=== PATIENT | male | born 1960 | race Caucasian/White ===

== ENCOUNTER 2024-03-21 13:57 | Inpatient (IN) | payer BC ==
[2024-03-21] MEDS ORDERED: HEPARIN SODIUM 1,000 UN/ML (10ML VL) IV PRN (14:00)
--- NOTE | 2024-03-21 14:07 | ED ---
Chest Pain HPI - General Chief Complaint: Chest Pain Stated Complaint: STEMI Time Seen by Provider: 03/21/24 14:00 Source: patient Mode of arrival: EMS Limitations: no limitations - History of Present Illness Initial Comments: This patient is a 63-year-old man who presents for evaluation of upper chest pain that started approximately 45 minutes ago. Patient had associated dyspnea. EMS was called and transferred patient here. Denies history of previous coronary disease. MD Complaint: chest pain Onset/Timin -: minutes(s) Onset: during rest Pain Location: left chest Pain Radiation: LUE Severity: moderate Quality: aching Consistency: constant Improves With: nothing Worsens With: nothing Anginal Symptoms: dyspnea Treatments Prior to Arrival: aspirin, nitroglycerin - Related Data Previous Rx's Medication Instructions Recorded Aspirin 81 mg PO DAILY #30 tab 03/23/24 Atorvastatin [Lipitor] 40 mg PO HS #30 tab 03/23/24 Metoprolol Succinate (ER) [Toprol 12.5 mg PO DAILY #30 tab 03/23/24 XL] Nitroglycerin Sl Tabs [Nitrostat] 0.4 mg SUBLINGUAL Q5M PRN #30 tab 03/23/24 Ticagrelor [Brilinta] 90 mg PO BID #60 tab 03/23/24 Allergies Allergy/AdvReac Type Severity Reaction Status Date / Time No Known Allergies Allergy Verified 03/21/24 14:15 Review of Systems ROS Statement: Those systems with pertinent positive or pertinent negative responses have been documented in the HPI. ROS Other: All systems not noted in ROS Statement are negative. Constitutional: Denies: fever, chills, weakness Respiratory: Reports: dyspnea. Denies: cough Cardiovascular: Reports: chest pain. Denies: palpitations, orthopnea, edema, syncope Gastrointestinal: Denies: abdominal pain, nausea, vomiting, diarrhea, constipation Genitourinary: Denies: dysuria, hematuria Musculoskeletal: Denies: back pain Skin: Denies: rash Neurological: Denies: headache, weakness, numbness EKG Findings - EKG Results: EKG: interpreted by JAYCE, sinus rhythm, normal axis - Blocks, [place], Hypertrophy, ST Abn: AV and intraventricular conduction: 1 AV block - NJ, Pacemaker, Normal: Myocardial infarction: inferior NJ (old age indeterminate) Past Medical History Past Medical History: Hyperlipidemia, Hypertension Past Surgical History: Hernia Repair, Orthopedic Surgery Smoking Status: Never smoker General Exam Limitations: no limitations General appearance: alert, in no apparent distress Head exam: Present: atraumatic, normocephalic Eye exam: Present: normal appearance. Absent: scleral icterus, conjunctival injection Neck exam: Present: normal inspection Respiratory exam: Present: normal lung sounds bilaterally. Absent: respiratory distress, wheezes, rales, rhonchi, stridor, accessory muscle use Cardiovascular Exam: Present: regular rate, normal rhythm, normal heart sounds. Absent: systolic murmur, diastolic murmur, rubs, gallop GI/Abdominal exam: Present: soft. Absent: distended, tenderness, guarding, rebound, rigid, mass Extremities exam: Present: normal inspection, normal capillary refill. Absent: pedal edema, calf tenderness Back exam: Present: normal inspection. Absent: CVA tenderness (R), CVA tenderness (L) Neurological exam: Present: alert Skin exam: Present: warm, dry, intact, normal color. Absent: rash Course Vital Signs 03/21/24 03/21/24 03/21/24 13:59 14:09 14:11 Temperature 97 F L Pulse Rate 63 58 L Pulse Rate [ 60 Pulse Oximetery ] Respiratory 16 16 Rate Blood Pressure 106/70 117/76 O2 Sat by Pulse 99 99 Oximetry Chest Pain MDM - MDM The patient had chest x-ray that I interpreted as negative for acute infiltrate, pneumothorax, congestive heart failure Was pt. sent in by a medical professional or institution (KAITLIN Mendes, LOCKER ATTENDANT, urgent care, hospital, or fdc...) When possible be specific @ -[No] Did you speak to anyone other than the patient for history (EMS, parent, family, police, friend...)? What history was obtained from this source @ -[No] Did you review nursing and triage notes (agree or disagree)? Why? @ -[I reviewed and agree with nursing and triage notes] Were old charts reviewed (outside hosp., previous admission, EMS record, old EKG, old radiological studies, urgent care reports/EKG's, fdc records)? Report findings @ -[No old charts were reviewed] Differential Diagnosis (chest pain, altered mental status, abdominal pain women, abdominal pain men, vaginal bleeding, weakness, fever, dyspnea, syncope, headache, dizziness, GI bleed, back pain, seizure, CVA, palpatations, mental health, musculoskeletal)? @ -[Differential Chest Pain: Stable Angina, Unstable Angina, STEMI, NSTEMI Aortic Dissection, Pneumothorax, Musculoskeletal, Esophageal Spasm GERD, Cholecystitis, Pancreatitis, Zoster, this is not meant to be an all-inclusive list. EKG interpreted by me (3pts min.). @ -[I interpreted the patient's twelve-lead ECG as showing acute inferior STEMI X-rays interpreted by me (1pt min.). @ -[I interpreted as above CT interpreted by me (1pt min.). @ -[None done] U/S interpreted by me (1pt. min.). @ -[None done] What testing was considered but not performed or refused? (CT, X-rays, U/S, labs)? Why? @ -[None] What meds were considered but not given or refused? Why? @ -[None] Did you discuss the management of the patient with other professionals (professionals i.e. , PA, LOCKER ATTENDANT, lab, RT, psych nurse, social contact worker, aircraft maintenance technician, teacher, public relations officer, case management director)? Give summary @ -[Case discussed with admitting physician and with cardiology on-call and treatment recommendations incorporated Was smoking cessation discussed for >3mins.? @ -[No] Was critical care preformed (if so, how long)? @ -[Yes, 30 minutes Were there social determinants of health that impacted care today? How? (Homelessness, low income, unemployed, alcoholism, drug addiction, transportation, low edu. Level, literacy, decrease access to med. care, fdc, rehab)? @ -[No] Was there de-escalation of care discussed even if they declined (Discuss DNR or withdrawal of care, Hospice)? DNR status @ -[No] What co-morbidities impacted this encounter? (DM, HTN, Smoking, COPD, CAD, Cancer, CVA, ARF, Chemo, Hep., AIDS, mental health diagnosis, sleep apnea, morbid obesity)? @ -[None] Was patient admitted / discharged? Hospital course, mention meds given and route, prescriptions, significant lab abnormalities, going to OR and other pertinent info. @ -[Patient is a 63-year-old man brought by ambulance to have evaluation of c hest pain. The patient found to have acute ST elevation NJ. The [facility] is activated based on the telemetry EKG and the patient transferred to [facility] Undiagnosed new problem with uncertain prognosis? @ -[No] Drug Therapy requiring intensive monitoring for toxicity (Heparin, Nitro, Insulin, Cardizem)? @ -[No] Were any procedures done? @ -[No] Diagnosis/symptom? @ -[Acute STEMI Acute, or Chronic, or Acute on Chronic? @ -[Acute Uncomplicated (without systemic symptoms) or Complicated (systemic symptoms)? @ -[Uncomplicated Side effects of treatment? @ -[No] Exacerbation, Progression, or Severe Exacerbation? @ -[No] Poses a threat to life or bodily function? How? (Chest pain, [place], NJ, pneumonia, PE, COPD, DKA, ARF, appy, cholecystitis, CVA, Diverticulitis, Homicidal, Suicidal, threat to staff... and all critical care pts) @ -[Yes Critical Care Time Critical Care Time: Yes (30 minutes) Disposition Clinical Impression: STEMI (ST elevation myocardial infarction) Disposition: ADMITTED IP TO THIS HOSP Condition: Good Is patient prescribed a controlled substance at d/c from ED?: No
[2024-03-21] MEDS: MORPHINE SULFATE 4 MG/ML SYRINGE IV STA (14:08)
[2024-03-21] MEDS: ATORVASTATIN 80 MG TAB PO STA (14:08)
[2024-03-21] MEDS: HEPARIN SODIUM 1,000 UN/ML (10ML VL) IV ONE (14:10)
[2024-03-21] MEDS: IV FLUID CONTINUATION 1,000 ML IV ONE ×3 (14:19→21:25)
--- NOTE | 2024-03-21 14:20 | XR ---
EXAMINATION TYPE: XR chest 1V portable DATE OF EXAM: 03/21/2024 Comparison: None Clinical History: 63-year-old male chest pain Findings: Heart normal size. Mild interstitial density and peribronchial cuffing. No consolidation or pleural e ffusion. Impression: Interstitial density could reflect bronchitis or asthma. [facility], , 03/21/2024 2:17 PM
[2024-03-21] MEDS: MORPHINE SULFATE 4 MG/ML SYRINGE IVP ONE (14:30)
[2024-03-21] MEDS: LIDOCAINE 1% INJ 10MG/ML (20 ML MDV) SQ ONE ×2 (14:30→21:26)
[2024-03-21] MEDS: TICAGRELOR 90 MG TAB PO ONE (14:32)
[2024-03-21] MEDS: VERAPAMIL SYRINGE (5 MG/10 ML) INTRAARTER ONE ×2 (14:32→21:27)
[2024-03-21] MEDS: HEPARIN SODIUM 1,000 UN/ML (10ML VL) IVP ONE (14:38)
[2024-03-21 14:48] LABS: Basophils % (A) 1 %; Eosinophils # (A) 0.1 k/uL (0-0.7); Eosinophils % (A) 1 %; HCT 43.3 % (39.0-53.0); HGB 14.2 gm/dL (13.0-17.5); Lymphocytes # (A) 2.8 k/uL (1.0-4.8); Lymphocytes % (A) 44 %; MCH 30.2 pg (25.0-35.0); MCHC 32.9 g/dL (31.0-37.0); MCV 91.8 fL (80.0-100.0); Mean Platelet Volume 7.8; Monocytes # (A) 0.5 k/uL (0-1.0); Monocytes % (A) 8 %; Neutrophils # (A) 2.7 k/uL (1.3-7.7); Neutrophils % (A) 42 %; Platelet Count 152 k/uL (150-450); RBC 4.72 m/uL (4.30-5.90); RDW 13.2 % (11.5-15.5); WBC 6.5 k/uL (3.8-10.6)
[2024-03-21] MEDS: EPINEPHrine 10 ML SYRINGE (0.1 MG/ML) MISCELLANE ONE (14:48)
[2024-03-21 14:53] LABS: ALT 20 U/L (4-49); African American GFR (CKD) 83 (>60 ml/min/1.73 sqM); Anion Gap 14 mmol/L; Blood Urea Nitrogen 14 mg/dL (9-20); Calcium 9.7 mg/dL (8.4-10.2); Carbon Dioxide 19 mmol/L (22-30); Chloride 108 mmol/L (98-107); Glucose 101 mg/dL (74-99); Non-African American GFR(CKD) 72 (>60 ml/min/1.73 sqM); Sodium 141 mmol/L (137-145); Total Bilirubin 0.8 mg/dL (0.2-1.3)
[2024-03-21 14:56] LABS: AST 37 U/L (17-59); Albumin 4.4 g/dL (3.5-5.0); Magnesium 2.3 mg/dL (1.6-2.3); Potassium 4.5 mmol/L (3.5-5.1); Total Protein 6.9 g/dL (6.3-8.2)
[2024-03-21 14:57] LABS: Alkaline Phosphatase 59 U/L (38-126)
[2024-03-21] MEDS: METOPROLOL TARTRATE 5 MG/5 ML VIAL IVP ONE (15:00)
[2024-03-21] MEDS: hydrALAZINE HCL 20 MG/ML 1 ML VIAL IVP ONE (15:00)
[2024-03-21 15:05] LABS: Partial Thromboplastin Time 23.4 sec (22.0-30.0); Prothrombin Time 10.6 sec (10.0-12.5)
[2024-03-21] MEDS: PHENYLEPHRINE 10 MG/ML VIAL IV ONE (15:15)
[2024-03-21] MEDS: NOREPINEPHRINE 4 MG in SODIUM CHLORIDE 0.9% 250 ML IV ONE (15:17)
[2024-03-21] MEDS: IOPAMIDOL-370 200ML BTL INJ ONE (15:39)
[2024-03-21] MEDS: TIROFIBAN 12.5MG-250ML NS 250 ML IV ONE (15:58)
[2024-03-21] MEDS ORDERED: NITROGLYCERIN SL TABS 0.4 MG TAB SUBLINGUAL PRN (16:08)
[2024-03-21] MEDS ORDERED: RX INFO: IV CONTRAST WAS GIVEN 1 EACH MISC MISCELLANE PRN ×2 (16:08→21:40)
[2024-03-21] MEDS ORDERED: ATROPINE SULFATE 0.1 MG/ML 10ML SYRINGE IV PRN (16:08)
[2024-03-21] MEDS ORDERED: ZOLPIDEM 5 MG TAB PO PRN (16:08)
[2024-03-21] MEDS ORDERED: MAG HYDROX/AL HYDROX/SIMETH 30 ML CUP PO PRN (16:08)
--- NOTE | 2024-03-21 16:18 | P.PCN ---
Date of Procedure: 03/21/24 Operative Findings: CARDIAC CATHETERIZATION AND PERCUTANEOUS CORONARY INTERVENTION PERFORMING PHYSICIAN: Konstantin Metzger MD, [facility] PROCEDURE PERFORMED: 1. Selective right and left coronary angiogram 2. Left heart catheterization 3. Successful stenting of mid RCA using 5.0 x 28 mm Xience EDY which was pos tdilated using 5.5 mm NC balloon with an excellent angiographic results 4. Adjunctive use of IVUS and thrombectomy 5. Ultrasound-guided access of the right radial artery INDICATION: Inferior ST elevation myocardial infarction COMPLICATION: None APPROACH: Right radial artery LEVEL OF SEDATION: Moderate with the sedation time off 80 minutes PROCEDURE DESCRIPTION: After obtaining informed consent the patient was brought to the cardiac Peeled Potato Inspector. The right radial artery was cannulated using micropuncture technique under ultrasound guidance a micropuncture wire passed easily then I placed a 6 Romansh 11 cm sheath at the right radial artery. After that I gave the patient 2 mg of verapamil intra-arterial and 4000 units of heparin intravenous. Selective right and left coronary angiogram performed using JL 3.5 diagnostic catheter and JR4 guiding catheter. Subsequently I decided to intervene on the RCA. Anticoagulation was initiated using heparin as described earlier. I did engage the RCA using JR4 guiding catheter. An angiogram was performed and showed that the RCA was occluded in the midportion with a large thrombus burden. I did cross it using a run-through wire and the wire was advanced to the PLV branch of the right coronary artery. After that I did start with aspiration thrombectomy using the manual aspiration thrombectomy which crossed the lesion with difficulties and I was able to extract small amount of clot but the flow continues to be JON I flow. At that point I realized there is a tight lesion in the mid RCA. I decided to balloon that lesion so I ballooned it using 3.5 x 15 mm balloon and subsequently I was able to advance the penumbra mechanical thrombectomy and I did multiple rounds of mechanical thrombectomy. At that point I was able to restore the flow to the distal right coronary artery. Subsequently I decided to move forward with stenting of the RCA so I deployed in the mid RCA 4.0 x 28 mm stent where the stent was positioned under fluoroscopy guidance and deployed under fluoroscopy guidance. An angiogram showed no flow. The patient was given verapamil. Subsequently he was given epinephrine but the blood pressure shot up to almost about 200 mm systolic. He was given Lopressor and he was given hydralazine and the pressure came back to normal. An angiogram was performed and showed that the PLV branch of the right coronary artery was occluded likely because of thrombus. I did balloon angioplasty of the PLV branch of the RCA using 2.5 mm balloon. I was able after that to restore the flow in the RCA. Please note that IVUS was performed and showed that the stent appeared to be somewhat not well expanded in the midportion so I decided to postdilated using 4.5 mm noncompliant balloon. Final angiogram showed good angiographic results with intermediate lesion involving the proximal RCA right after the ostium but no dissection was documented by IVUS. I decided to stop at that point. The patient tolerated the procedure very well. I gave the patient double bolus of Aggrastat. The distal PDA branch of the RCA which is small caliber vessel appears to be occluded SELECTIVE CORONARY ANGIOGRAM: The right coronary artery: Large-caliber vessel, aneurysmal vessel, with thrombotic occlusion at 100% and JON 0 flow. Left main: Has mild disease appears to be in the range of 20 to 30%. Bifurcates into an LCx and LAD The left circumflex: Large caliber vessel nondominant vessel with ostial lesion appears to be in the range of 40 to 50%. Gives rise into a large OM which trifurcated into 3 separate branches appear to have mild disease only The left anterior descending artery: Large caliber vessel. The mid LAD appears to have intermediate lesion in the range of 40 to 50% and the distal LAD appeared to have mild disease only. The LAD gives rise into diagonal branch which appeared to be small to medium caliber vessel CONCLUSION: Aneurysmal right and left coronary systems Occluded mid RCA with a large thrombus burden. I did perform PCI of the RCA as described above Mild to moderate nonobstructive disease involving an aneurysmal left coronary system POSTPROCEDURE MANAGEMENT: 1. Dual antiplatelet therapy using aspirin and Brilinta for 12 month 2. Aggressive cholesterol control 3. Follow-up with the patient
[2024-03-21 16:26] LABS: Glucose,Whole Blood 115 mg/dL (70-110)
[2024-03-21] MEDS: NOREPINEPHRINE 4 MG in SODIUM CHLORIDE 0.9% 250 ML IV SCH (16:30)
[2024-03-21] MEDS: SODIUM CHLORIDE 0.9% 1,000 ML in EMPTY BAG 1 BAG IV SCH (16:38)
--- NOTE | 2024-03-21 16:57 | P.HPIM ---
History of Present Illness H&P Date: 03/21/24 Chief Complaint: Chest pain 63-year-old male patient, history of hypertension, hyperlipidemia, brought to ED by EMS with complaint of chest pain as a STEMI alert; patient reports chest pain started about an hour prior to arrival to the ER on the left side of the chest radiating to left upper extremity; pain started at rest and more like aching on the left side of the chest; patient received aspirin and nitroglycerin en route to ED EKG revealed marked ST elevation consistent with inferior injury; EKG was reviewed by cardiology and patient was taken to Environmental Engineering Intern for further intervention Blood work on arrival reveals a WBC of 6.5, hemoglobin of 14.2 and platelet count 152, sodium 141, potassium 4.5, BUN/creatinine 14/1.10 and blood glucose of 101 Chest x-ray reveals interstitial density possibly bronchitis or asthma Patient underwent cardiac catheterization which revealed occluded mid RCA with large thrombus burden; patient underwent PCI of the RCA; mild to moderate nonobstructive disease involving an aneurysmal left coronary stent Review of Systems REVIEW OF SYSTEMS: CONSTITUTIONAL: No fever, no malaise, no fatigue. HEENT: No recent visual problems or hearing problems. Denied any sore throat. CARDIOVASCULAR: No chest pain, orthopnea, PND, no palpitations, no syncope. PULMONARY: No shortness of breath, no cough, no hemoptysis. GASTROINTESTINAL: No diarrhea, no nausea, no vomiting, no abdominal pain. NEUROLOGICAL: No headaches, no weakness, no numbness. HEMATOLOGICAL: Denies any bleeding or petechiae. GENITOURINARY: Denies any burning micturition, frequency, or urgency. MUSCULOSKELETAL/RHEUMATOLOGICAL: Denies any joint pain, swelling, or any muscle pain. ENDOCRINE: Denies any polyuria or polydipsia. The rest of the 14-point review of systems is negative. Past Medical History Past Medical History: Hyperlipidemia, Hypertension Past Surgical History: Hernia Repair, Orthopedic Surgery Smoking Status: Never smoker Medications and Allergies Home Medications Medication Instructions Recorded Confirmed Type Aspirin EC [Ecotrin Low Dose] 162 mg PO DAILY 03/21/24 03/21/24 History Allergies Allergy/AdvReac Type Severity Reaction Status Date / Time No Known Allergies Allergy Verified 03/21/24 14:15 Physical Exam Vitals: Vital Signs Temp Pulse Pulse Resp BP Pulse Ox 03/21/24 14:15 60 16 116/60 98 03/21/24 14:11 60 03/21/24 14:09 58 L 16 117/76 99 03/21/24 13:59 97 F L 63 16 106/70 99 Intake and Output 03/21/24 03/21/24 03/21/24 06:59 14:59 22:59 Other: Weight 99.79 kg General appearance: alert, in no apparent distress Head exam: Present: atraumatic, normocephalic Eye exam: Present: normal appearance. Absent: scleral icterus, conjunctival injection Neck exam: Present: normal inspection Respiratory exam: Present: normal lung sounds bilaterally. Absent: respiratory distress, wheezes, rales, rhonchi, stridor, accessory muscle use Cardiovascular Exam: Present: regular rate, normal rhythm, normal heart sounds. Absent: systolic murmur, diastolic murmur, rubs, gallop GI/Abdominal exam: Present: soft. Absent: distended, tenderness, guarding, rebound, rigid, mass Extremities exam: Present: normal inspection, normal capillary refill. Absent: pedal edema, calf tenderness Back exam: Present: normal inspection. Absent: CVA tenderness (R), CVA tenderness (L) Neurological exam: Present: alert Skin exam: Present: warm, dry, intact, normal color. Absent: rash Results CBC & Chem 7: 03/21/24 14:06 03/21/24 14:06 Labs: Abnormal Lab Results - Last 24 Hours (Table) 03/21/24 Range/Units 14:06 Chloride 108 H (98-107) mmol/L Carbon Dioxide 19 L (22-30) mmol/L Glucose 101 H (74-99) mg/dL Assessment and Plan Assessment: 1. Chest pain/STEMI -Patient received aspirin 162 mg x 1, Lipitor 80 mg x 1 and placed on IV heparin in ED -Patient is status post cardiac catheterization revealing occluded mid RCA with large thrombus burden; patient is status post PCI of her RCA -- Dual antiplatelet therapy using aspirin and Brilinta for 12 months -Aggressive cholesterol control is recommended 2. Hypotension; patient is requiring small dose of Levophed and is brought to ICU; plan to titrate once blood pressure stable 3. Hyperlipidemia; currently not on any current therapy; has been placed on Lipitor 80 mg p.o. nightly DVT prophylaxis; IV heparin CODE STATUS; full code
[2024-03-21] MEDS ORDERED: TIROFIBAN 12.5MG-250ML NS 250 ML IV SCH (20:00)
[2024-03-21] MEDS: TIROFIBAN 12.5MG-250ML NS 250 ML IV SCH ×2 (20:24→22:20)
[2024-03-21] MEDS: MORPHINE SULFATE 2 MG/ML SYRINGE IVP STA (20:25)
[2024-03-21] MEDS: ONDANSETRON 4 MG/2 ML VIAL IVP STA (20:26)
[2024-03-21] MEDS: ATORVASTATIN 80 MG TAB PO SCH (20:28)
[2024-03-21] MEDS: TICAGRELOR 90 MG TAB PO SCH (20:28)
--- NOTE | 2024-03-21 20:39 | P.CRDCN ---
History of Present Illness Consult date: 03/21/24 Chief complaint: Chest pain History of present illness: This is a 63-year-old gentleman with no significant past medical history of diabetes or hypertension or dyslipidemia was brought to the hospital with ambulance for chest discomfort and EKG concerning for inferior ST elevation myocardial infarction. The patient is from [facility] and he was camping with his family in this area. He started experiencing chest discomfort/back discomfort started about a week ago but got intense within the last 24 hours. He describes discomfort as a pressure/burning sensation in the middle of the chest radiating to his left arm and radiating to the back. No associated symptoms of sweating or dizziness or lightheadedness or any presyncope or synco pe. Because the chest discomfort get intense earlier today he called ambulance and the EKG on scene showed inferior ST elevation myocardial infarction. Subsequently the patient was brought to the emergency department and STEMI alert was called and the patient was brought emergently to the cardiac catheterization. He underwent a heart catheterization which revealed mild to moderate nonobstructive coronary artery disease involving the left coronary system with aneurysmal left coronary system and also extremely aneurysmal right coronary system with total occlusion of the RCA in the midportion with a large thrombus burden. Giving the large thrombus burden I started with manual aspiration thrombectomy with better angiographic results but no JON-3 flow. There was a tight lesion in the midportion of the RCA. I did balloon angioplasty and subsequently I did mechanical thrombectomy using the penumbra. Subsequently after that I had JON 0 flow in the RCA/no reflow which was improved slightly after the patient was given nicardipine. Subsequently the angiogram showed JON-3 flow in the right coronary artery with residual thrombus involving the of the PLV branch of the RCA. I did perform successful PCI of the RCA in the midportion and then I did balloon angioplasty of the PLV branch of the RCA and by the end we get good angiographic results with JON-3 flow and still residual thrombus involving the distal RCA. At that point I decided to stop. The patient was loaded at the beginning of the procedure with the Brilinta and he was given at the end of the procedure double bolus of Aggrastat. He was feeling better with significant improvement in the chest discomfort and significant improvement in the EKG changes but still have residual ST segment elevation in the inferior leads. 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 with JON II flow even in the left coronary system Plan Continue dual antiplatelet therapy Aggressive cholesterol control He was given double bolus of Aggrastat at the end of the procedure Avoid any blood pressure medications including any beta-shira or MADELYN inhibitor at this point Monitor the patient in the ICU Follow-up on the echocardiogram Standard right radial artery site care with TR band Follow-up with the patient Past Medical History Past Medical History: Hyperlipidemia, Hypertension Additional Past Medical History / Comment(s): TIA History of Any Multi-Drug Resistant Organisms: None Reported Past Surgical History: Hernia Repair, Orthopedic Surgery Additional Past Surgical History / Comment(s): vasectomy Past Anesthesia/Blood Transfusion Reactions: No Reported Reaction Smoking Status: Never smoker Medications and Allergies Home Medications Medication Instructions Recorded Confirmed Type Aspirin EC [Ecotrin Low Dose] 162 mg PO DAILY 03/21/24 03/21/24 History Allergies Allergy/AdvReac Type Severity Reaction Status Date / Time No Known Allergies Allergy Verified 03/21/24 14:15 Physical Exam Vitals: Vital Signs Temp Pulse Pulse Resp BP Pulse Ox 03/21/24 19:00 73 18 107/74 98 03/21/24 18:45 75 14 113/78 98 03/21/24 18:30 71 16 118/75 99 03/21/24 18:15 82 19 113/88 91 L 03/21/24 18:00 82 21 116/76 96 03/21/24 17:45 87 16 113/72 98 03/21/24 17:30 91 21 127/78 97 03/21/24 17:15 89 18 127/84 98 03/21/24 17:00 85 31 H 129/82 97 03/21/24 16:40 84 23 123/76 94 L 03/21/24 16:30 83 23 131/82 90 L 03/21/24 16:26 97.9 F 84 17 121/101 89 L 03/21/24 14:15 60 16 116/60 98 03/21/24 14:11 60 03/21/24 14:09 58 L 16 117/76 99 03/21/24 13:59 97 F L 63 16 106/70 99 Intake and Output 03/21/24 03/21/24 03/21/24 06:59 14:59 22:59 Intake Total 850 849.665 Output Total 550 Balance 850 299.665 Intake: IV 850 824 Sodium Chloride 0.9% 1, 225 000 ml In Empty Bag 1 bag @ 75 mls/hr IV .[id number] [facility] Rx#:[id number] Intake, IV Titration 25.665 Amount Norepinephrine 4 mg In 25.665 Sodium Chloride 0.9% 250 ml @ 0.08 MCG/KG/MIN 30. 416 mls/hr IV .Q8H22M [facility] Rx#:[id number] Output: Urine 550 Other: Voiding Method Urinal # Voids 1 Weight 99.79 kg 98.8 kg Results 03/21/24 14:06 03/21/24 14:06 Cardiac Enzymes 03/21/24 03/21/24 Range/Units 14:06 14:06 AST 37 (17-59) U/L Troponin I <0.012 (0.000-0.034) ng/mL Coagulation 03/21/24 Range/Units 14:06 PT 10.6 (10.0-12.5) sec APTT 23.4 (22.0-30.0) sec CBC 03/21/24 Range/Units 14:06 WBC 6.5 (3.8-10.6) k/uL RBC 4.72 (4.30-5.90) m/uL Hgb 14.2 (13.0-17.5) gm/dL Hct 43.3 (39.0-53.0) % Plt Count 152 (150-450) k/uL Comprehensive Metabolic Panel 03/21/24 Range/Units 14:06 Sodium 141 (137-145) mmol/L Potassium 4.5 (3.5-5.1) mmol/L Chloride 108 H (98-107) mmol/L Carbon Dioxide 19 L (22-30) mmol/L BUN 14 (9-20) mg/dL Creatinine 1.10 (0.66-1.25) mg/dL Glucose 101 H (74-99) mg/dL Calcium 9.7 (8.4-10.2) mg/dL AST 37 (17-59) U/L ALT 20 (4-49) U/L Alkaline Phosphatase 59 (38-126) U/L Total Protein 6.9 (6.3-8.2) g/dL Albumin 4.4 (3.5-5.0) g/dL Current Medications Generic Name Dose Route Start Last Admin Trade Name Freq PRN Reason Stop Dose Admin Al Hydroxide/Mg Hydroxide 30 ml 03/21/24 16:08 Mag Hydrox/Al Hydrox/Simeth 30 Ml Cup PO Q4HR PRN Heartburn Aspirin 81 mg 03/22/24 09:00 Aspirin 81 Mg PO DAILY [facility] Atorvastatin Calcium 80 mg 03/21/24 21:00 03/21/24 20:28 Atorvastatin 80 Mg Tab PO 80 mg HS [facility] Administration Atropine Sulfate 0.5 mg 03/21/24 16:08 Atropine Sulfate 0.1 Mg/Ml 10ml Syringe IV ONCE PRN Symptomatic Bradycardia Heparin Sodium (Porcine) 0 unit 03/21/24 14:00 Heparin Sodium 1,000 Un/Ml (10ml Vl) IV Q6HR PRN Low PTT Protocol Sodium Chloride 1,000 ml/ IV 1,000 mls @ 75 mls/hr 03/21/24 16:15 03/21/24 16:38 Solution IV 03/21/24 22:14 75 mls/hr .[id number] [facility] Administration Norepinephrine Bitartrate 4 mg 254 mls @ 30.416 mls/hr 03/21/24 16:45 03/21/24 18:00 / Sodium Chloride IV 0 mcg/kg/min .Q8H22M [facility] 0 mls/hr Titration Protocol 0.08 MCG/KG/MIN Tirofiban/Sodium Chloride 250 mls @ 17.784 mls/hr 03/21/24 20:15 03/21/24 20:24 Aggrastat 12.5 Mg/250 Ml Ns IV 17.784 mls/hr .Q14H4M [facility] Administration 0.15 MCG/KG/MIN Miscellaneous Information 1 each 03/21/24 16:08 Rx Info: Iv Contrast Was Given 1 Each Misc MISCELLANE 03/23/24 16:08 DAILY PRN Per Protocol Nitroglycerin 0.4 mg 03/21/24 16:08 Nitroglycerin Sl Tabs 0.4 Mg Tab SUBLINGUAL Q5M PRN Chest Pain Ticagrelor 90 mg 03/21/24 21:00 03/21/24 20:28 Ticagrelor 90 Mg Tab PO 90 mg BID [facility] Administration Protocol Zolpidem Tartrate 5 mg 03/21/24 16:08 Zolpidem 5 Mg Tab PO HS PRN Insomnia Intake and Output 03/21/24 03/21/24 03/21/24 06:59 14:59 22:59 Intake Total 850 849.665 Output Total 550 Balance 850 299.665 Intake: IV 850 824 Sodium Chloride 0.9% 1, 225 000 ml In Empty Bag 1 bag @ 75 mls/hr IV .[id number] [facility] Rx#:[id number] Intake, IV Titration 25.665 Amount Norepinephrine 4 mg In 25.665 Sodium Chloride 0.9% 250 ml @ 0.08 MCG/KG/MIN 30. 416 mls/hr IV .Q8H22M [facility] Rx#:[id number] Output: Urine 550 Other: Voiding Method Urinal # Voids 1 Weight 99.79 kg 98.8 kg Patient Weight 03/22/24 06:59 Weight 98.8 kg 03/21/24 14:06 03/21/24 14:06
[2024-03-21] MEDS: MIDAZOLAM 2 MG/2 ML VIAL IVP ONE (21:25)
[2024-03-21] MEDS: HEPARIN SODIUM,PORCINE (1 ML) 2,500 UNIT in SODIUM CHLORIDE 0.9% 250 ML IRRIGATION ONE (21:33)
[2024-03-21] MEDS: HEPARIN SODIUM,PORCINE 10,000 UNIT in SODIUM CHLORIDE 0.9% 1,000 ML IRRIGATION ONE (21:33)
[2024-03-21] MEDS: IOPAMIDOL-370 100ML BTL INJ ONE (21:39)
--- NOTE | 2024-03-21 21:46 | P.PCN ---
Date of Procedure: 03/21/24 Operative Findings: CARDIAC CATHETERIZATION PERFORMING PHYSICIAN: Konstantin Metzger MD, RPVI PROCEDURE PERFORMED: 1. Selective right and left coronary angiogram 2. Ultrasound-guided access of the left radial artery INDICATION: This is a 63-year-old gentleman who presented earlier with inferior ST ovation myocardial infarction and underwent PCI of the RCA. He was found to have large thrombus burden. He was feeling well for the next few hours but subsequently he started experiencing chest discomfort with EKG concerning for ischemia inferiorly and possible stent thrombosis. In the light of that a heart catheterization was advised COMPLICATION: None APPROACH: Left radial artery LEVEL OF SEDATION: Moderate with a sedation length of 12 minutes PROCEDURE DESCRIPTION: After obtaining an informed consent, the patient was brought to cardiac mechanical laboratory technician. Local anesthesia was performed using lidocaine subcutaneously. The left radial artery was cannulated using Seldinger technique, the guidewire passed easily, following that we advanced a 5-Portuguese sheath dilator assembly, the wire and dilator were removed and sheath was flushed. Following that, 2 mg of verapamil was given Selective right and left coronary angiogram using a 5-Portuguese JR4 and JL 4 catheters. The procedure was completed there was no complication. SELECTIVE CORONARY ANGIOGRAM: The right coronary artery: Large-caliber vessel and a dominant vessel. The RCA stent appeared to be patent. The the inferior subbranch of the PLV appears to be occluded distally. The distal PDA also appears to be occluded distally Left main: Has mild disease only The left circumflex: The ostial left circumflex has 40 to 50% lesion appears to be the same as before The left anterior descending artery: The LAD has mild to moderate nonobstructive disease appears to be the same as before CONCLUSION: Patent stent in the mid RCA. Occluded small distal subbranch of the PLV and occluded small distal PDA of RCA POSTPROCEDURE MANAGEMENT: Continue dual antiplatelet therapy along with high intensity statin Avoid any anti-ischemic medications including any beta-shira or MADELYN inhibitor in the light of marginally low blood pressure Continue Aggrastat. The patient clearly started feeling better with improvement in the chest discomfort when he started on the medications in the ICU before he was brought to the cardiac [employer] Intern Follow-up with the patient Follow-up with the echocardiogram
[2024-03-21] MEDS: SODIUM CHLORIDE 0.9% 1,000 ML IV SCH (22:08)
[2024-03-22 05:59] LABS: Basophils % (A) 0 %; Eosinophils % (A) 0 %; HCT 36.9 % (39.0-53.0); HGB 12.3 gm/dL (13.0-17.5); Lymphocytes # (A) 1.3 k/uL (1.0-4.8); Lymphocytes % (A) 15 %; MCH 30.6 pg (25.0-35.0); MCHC 33.3 g/dL (31.0-37.0); Mean Platelet Volume 8.5; Monocytes # (A) 0.4 k/uL (0-1.0); Monocytes % (A) 5 %; Neutrophils # (A) 6.8 k/uL (1.3-7.7); Neutrophils % (A) 77 %; Platelet Count 131 k/uL (150-450); RBC 4.01 m/uL (4.30-5.90); RDW 13.8 % (11.5-15.5); WBC 8.8 k/uL (3.8-10.6)
[2024-03-22 06:22] LABS: African American GFR (CKD) >90 (>60 ml/min/1.73 sqM); Anion Gap 6 mmol/L; Blood Urea Nitrogen 9 mg/dL (9-20); Calcium 8.8 mg/dL (8.4-10.2); Carbon Dioxide 24 mmol/L (22-30); Chloride 106 mmol/L (98-107); Glucose 122 mg/dL (74-99); Non-African American GFR(CKD) >90 (>60 ml/min/1.73 sqM); Potassium 3.8 mmol/L (3.5-5.1); Sodium 136 mmol/L (137-145)
[2024-03-22] MEDS: POTASSIUM CHLORIDE ER 20 MEQ TAB.ER PO SCH (06:33)
[2024-03-22] MEDS: PANTOPRAZOLE 40 MG TABLET PO SCH (06:46)
[2024-03-22] MEDS: ASPIRIN 81 MG PO SCH (08:12)
[2024-03-22] MEDS ORDERED: NON FORMULARY DRUG (Aspirin Ec 81 MG Tablet) PO SCH (09:00)
[2024-03-22 12:48] VITALS: BMI 28.7
--- NOTE | 2024-03-22 14:14 | P.PN ---
Subjective Progress Note Date: 03/22/24 63-year-old male patient, history of hypertension, hyperlipidemia, brought to ED by EMS with complaint of chest pain as a STEMI alert; patient reports chest pain started about an hour prior to arrival to the ER on the left side of the chest radiating to left upper extremity; pain started at rest and more like aching on the left side of the chest; patient received aspirin and nitroglycerin en route to ED EKG revealed marked ST elevation consistent with inferior injury; EKG was reviewed by cardiology and patient was taken to [facility] for further intervention Blood work on arrival reveals a WBC of 6.5, hemoglobin of 14.2 and platelet count 152, sodium 141, potassium 4.5, BUN/creatinine 14/1.10 and blood glucose of 101 Chest x-ray reveals interstitial density possibly bronchitis or asthma Patient underwent cardiac catheterization which revealed occluded mid RCA with large thrombus burden; patient underwent PCI of the RCA; mild to moderate nonobstructive disease involving an aneurysmal left coronary stent 03/22. Patient seen and examined. States he feels much better. Denies any chest pain. Denies any shortness of breath. REVIEW OF SYSTEMS: CONSTITUTIONAL: No fever, no malaise,. CARDIOVASCULAR: No chest pain, no palpitations, no syncope. PULMONARY: No shortness of breath, no cough, GASTROINTESTINAL: No diarrhea, no nausea, no vomiting, no abdominal pain. NEUROLOGICAL: No headaches, no weakness, PHYSICAL EXAMINATION: GENERAL: The patient is alert and oriented x3, not in any acute distress. Well developed, well nourished. HEENT: Pupils are round and equally reacting to light. EOMI. No scleral icterus. No conjunctival pallor. Normocephalic, atraumatic. No pharyngeal erythema. No thyromegaly. CARDIOVASCULAR: S1 and S2 present. No murmurs, rubs, or gallops. PULMONARY: Chest is clear to auscultation, no wheezing or crackles. ABDOMEN: Soft, nontender, nondistended, normoactive bowel sounds. No palpable organomegaly. MUSCULOSKELETAL: No joint swelling or deformity. EXTREMITIES: No cyanosis, clubbing, or pedal edema. NEUROLOGICAL: Gross neurological examination did not reveal any focal deficits. SKIN: No rashes. Assessment and plan ST elevation AL Hypotension Hyperlipidemia Monitor vital signs Monitor CBC Monitor CMP Continue telemetry monitoring Encourage use of incentive spirometer status post cardiac catheterization revealing occluded mid RCA with large thrombus burden; patient is status post PCI of her RCA Continue aspirin, Brilinta Continue Lipitor Cardiology following Labs and medication were reviewed.. Continue same treatment. Continue with symptomatic treatment. Resume home medication. Monitor labs and vitals. DVT and GI prophylaxis. Further recommendations as per clinical course of the patient Dictation was produced using [employer] dictation software. please excuse any grammatical, word or spelling errors. Objective - Vital Signs Vital signs: Vital Signs Temp 98.5 F 03/22/24 08:00 Pulse 66 03/22/24 13:00 Resp 19 03/22/24 13:00 BP 123/65 03/22/24 13:00 Pulse Ox 97 03/22/24 13:00 FiO2 Intake & Output 03/21/24 03/22/24 03/22/24 18:59 06:59 18:59 Intake Total 6032.345 3886 293.352 Output Total 007 138 4156 Balance 1074.665 450 -1156.648 Weight 98.8 kg 98.8 kg Intake: IV 1599 1050 53.352 Sodium Chloride 0.9% 1, 375 000 ml @ 75 mls/hr IV . [id number] [facility] Rx#:[id number] Sodium Chloride 0.9% 1, 150 475 000 ml In Empty Bag 1 bag @ 100 mls/hr IV .Q10H [facility] Rx#:[id number] Tirofiban 12.5MG-250Ml Ns 53.352 250 ml @ 0.075 MCG/KG/ MIN 8.892 mls/hr IV .Q24H [facility] Rx#:[id number] Intake, IV Titration 25.665 Amount Norepinephrine 4 mg In 25.665 Sodium Chloride 0.9% 250 ml @ 0.08 MCG/KG/MIN 30. 416 mls/hr IV .Q8H22M [facility] Rx#:[id number] Oral 240 Output: Urine 518 867 6346 Other: Voiding Method Urinal Urinal Urinal # Voids 1 1 1 - Labs CBC & Chem 7: 03/22/24 05:24 03/22/24 05:24 Labs: Abnormal Lab Results - Last 24 Hours (Table) 03/21/24 03/21/24 03/22/24 Range/Units 14:06 16:25 05:24 RBC 4.01 L (4.30-5.90) m/uL Hgb 12.3 L (13.0-17.5) gm/dL Hct 36.9 L (39.0-53.0) % Plt Count 131 L (150-450) k/uL Sodium (137-145) mmol/L Chloride 108 H (98-107) mmol/L Carbon Dioxide 19 L (22-30) mmol/L Glucose 101 H (74-99) mg/dL POC Glucose (mg/dL) 115 H (70-110) mg/dL 03/22/24 Range/Units 05:24 RBC (4.30-5.90) m/uL Hgb (13.0-17.5) gm/dL Hct (39.0-53.0) % Plt Count (150-450) k/uL Sodium 136 L (137-145) mmol/L Chloride (98-107) mmol/L Carbon Dioxide (22-30) mmol/L Glucose 122 H (74-99) mg/dL POC Glucose (mg/dL) (70-110) mg/dL
--- NOTE | 2024-03-22 16:11 | P.PN ---
Subjective Progress Note Date: 03/22/24 This is a 63-year-old gentleman with no significant past medical history of diabetes or hypertension or dyslipidemia was brought to the hospital with ambulance for chest discomfort and EKG concerning for inferior ST elevation myocardial infarction. The patient is from [facility] and he was camping wit h his family in this area. He started experiencing chest discomfort/back discomfort started about a week ago but got intense within the last 24 hours. He describes discomfort as a pressure/burning sensation in the middle of the chest radiating to his left arm and radiating to the back. No associated symptoms of sweating or dizziness or lightheadedness or any presyncope or syncope. Because the chest discomfort get intense earlier today he called ambulance and the EKG on scene showed inferior ST elevation myocardial infarction. Subsequently the patient was brought to the emergency department and STEMI alert was called and the patient was brought emergently to the cardiac catheterization. He underwent a heart catheterization which revealed mild to moderate nonobstructive coronary artery disease involving the left coronary system with aneurysmal left coronary system and also extremely aneurysmal right coronary system with total occlusion of the RCA in the midportion with a large thrombus burden. Giving the large thrombus burden I started with manual aspiration thrombectomy with better angiographic results but no JON-3 flow. There was a tight lesion in the midportion of the RCA. I did balloon angioplasty and subsequently I did mechanical thrombectomy using the penumbra. Subsequently after that I had JON 0 flow in the RCA/no reflow which was improved slightly after the patient was given nicardipine. Subsequently the angiogram showed JON-3 flow in the right coronary artery with residual thrombus involving the of the PLV branch of the RCA. I did perform successful PCI of the RCA in the midportion and then I did balloon angioplasty of the PLV branch of the RCA and by the end we get good angiographic results with JON-3 flow and still residual thrombus involving the distal RCA. At that point I decided to stop. The patient was loaded at the beginning of the procedure with the Brilinta and he was given at the end of the procedure double bolus of Aggrastat. He was feeling better with significant improvement in the chest discomfort and significant improvement in the EKG changes but still have residual ST segment elevation in the inferior leads. Progress note 03/22/2024 Patient is doing well with no recurrent chest pains. Patient is on Aggrastat drip with no concerns of bleeding. Hemoglobin and platelets have stayed stable. The physical examination is un remarkable for regular rhythm with clear breathing sounds bilaterally and no edema was noted in the lower extremities. Right and left radial artery has an arteriotomy site which is healthy and intact with good pulses with no signs of hematoma or bleeding Assessment Inferior ST elevation myocardial infarction Thrombotic occlusion of the RCA in the midportion with large thrombus burden Status post PCI of the RCA and PLV branch of the RCA Extremely aneurysmal right and left coronary system with JON II flow even in the left coronary system Plan Continue dual antiplatelet therapy, statin. Discontinue Aggrastat today at 2 PM. Okay to transfer out of ICU Await echocardiogram results Avoid any blood pressure medications including any beta-shira or MADELYN inhibitor at this point due to low resting heart rate and blood pressure. Will continue to follow Objective - Vital Signs Vital signs: Vital Signs Temp 98.5 F 03/22/24 08:00 Pulse 65 03/22/24 14:00 Resp 19 03/22/24 13:00 BP 110/66 03/22/24 14:00 Pulse Ox 97 03/22/24 13:00 FiO2 Intake & Output 03/21/24 03/22/24 03/22/24 18:59 06:59 18:59 Intake Total 0262.244 3577 893.352 Output Total 038 746 1303 Balance 1074.665 450 -556.648 Weight 98.8 kg 98.8 kg Intake: IV 1599 1050 53.352 Sodium Chloride 0.9% 1, 375 000 ml @ 75 mls/hr IV . [id number] [facility] Rx#:[id number] Sodium Chloride 0.9% 1, 150 475 000 ml In Empty Bag 1 bag @ 100 mls/hr IV .Q10H [facility] Rx#:[id number] Tirofiban 12.5MG-250Ml Ns 53.352 250 ml @ 0.075 MCG/KG/ MIN 8.892 mls/hr IV .Q24H [facility] Rx#:[id number] Intake, IV Titration 25.665 Amount Norepinephrine 4 mg In 25.665 Sodium Chloride 0.9% 250 ml @ 0.08 MCG/KG/MIN 30. 416 mls/hr IV .Q8H22M [facility] Rx#:[id number] Oral 840 Output: Urine 543 915 1069 Other: Voiding Method Urinal Urinal Urinal # Voids 1 1 1 - Labs CBC & Chem 7: 03/22/24 05:24 03/22/24 05:24 Labs: Abnormal Lab Results - Last 24 Hours (Table) 03/21/24 03/22/24 03/22/24 Range/Units 16:25 05:24 05:24 RBC 4.01 L (4.30-5.90) m/uL Hgb 12.3 L (13.0-17.5) gm/dL Hct 36.9 L (39.0-53.0) % Plt Count 131 L (150-450) k/uL Sodium 136 L (137-145) mmol/L Glucose 122 H (74-99) mg/dL POC Glucose (mg/dL) 115 H (70-110) mg/dL
[2024-03-22] MEDS: ACETAMINOPHEN TAB 325 MG TAB PO PRN (16:41)
--- NOTE | 2024-03-22 17:43 | CA ---
Transthoracic Echo Report Name: Franklin Enriquez Age: 63 Gender: M : 1960 Exam Date: 03/22/2024 08:11 Exam Location: [facility] Ht (in): 73 Wt (lb): 220 Ordering Physician: Konstantin Metzger MD ([id number]) Attending/Referring Phys: Denture Technician Supriya Alejandro RDCS Procedure CPT: Indications: stemi Cardiac Hx: Technical Quality: Fair Contrast 1: Total Dose (mL): Contrast 2: Total Dose (mL): MEASUREMENTS (Male / Female) Normal Values 2D ECHO LV Diastolic Diameter PLAX 4.7 cm 4.2 - 5.9 / 3.9 - 5.3 cm LV Systolic Diameter PLAX 3.4 cm IVS Diastolic Thickness 1.4 cm 0.6 - 1.0 / 0.6 - 0.9 cm LVPW Diastolic Thickness 1.3 cm 0.6 - 1.0 / 0.6 - 0.9 cm LV Relative Wall Thickness 0.6 RV Internal Dim ED PLAX 2.6 cm LV Diastolic Volume MOD BP 67.1 cm??? 67 - 155 / 56 - 104 cm??? LV Systolic Volume MOD BP 37.8 cm??? 22 - 58 / 19 - 49 cm??? LV Ejection Fraction MOD BP 43.6 % >= 55 % LV Cardiac Index MOD BP 857.4 cm???/min???m??? LV Diastolic Volume MOD 4C 55.4 cm??? LV Systolic Volume MOD 4C 25.7 cm??? LV Ejection Fraction MOD 4C 53.7 % LV Cardiac Index MOD 4C 870.7 cm???/min???m??? LV Diastolic Length 4C 7.6 cm LV Systolic Length 4C 6.7 cm LV Diastolic Volume MOD 2C 78.9 cm??? LV Systolic Volume MOD 2C 43.4 cm??? LV Ejection Fraction MOD 2C 45.0 % LV Cardiac Index MOD 2C 1039.8 cm???/min???m??? LV Diastolic Length 2C 7.9 cm LV Systolic Length 2C 7.2 cm M-MODE Aortic Root Diameter MM 4.1 cm LA Systolic Diameter MM 3.5 cm LA Ao Ratio MM 0.9 AV Cusp Separation MM 2.8 cm DOPPLER Mitral E Point Velocity 64.5 cm/s Mitral A Point Velocity 78.9 cm/s Mitral E to A Ratio 0.8 MV Deceleration Time 360.4 ms MV E' Velocity 10.6 cm/s Mitral E to MV E' Ratio 6.1 TR Peak Velocity 174.5 cm/s TR Peak Gradient 12.2 mmHg Right Ventricular Systolic Press 17.2 mmHg FINDINGS Left Ventricle Left ventricular ejection fraction is estimated at 50-55%. Moderately increased septal wall thickness. No obvious regional wall motion abnormalities. Left ventricular cavity size normal. Right Ventricle Mild right ventricular dilatation. Right ventricular systolic pressure within normal limits. Right Atrium Normal right atrial size. Left Atrium Normal left atrial size. Mitral Valve Structurally normal mitral valve. Trace mitral regurgitation. No mitral stenosis. Aortic Valve Trileaflet aortic valve. No aortic valve stenosis or regurgitation. Tricuspid Valve Structurally normal tricuspid valve. Trace to mild tricuspid regurgitation. No tricuspid stenosis. Pulmonic Valve Structurally normal pulmonic valve. Trace pulmonic regurgitation. No pulmonic stenosis. Pericardium No pericardial or pleural effusion. Aorta Mild aortic dilatation at the level of the sinuses of valsalva (root). CONCLUSIONS Diagnosis ST elevation ID 2D echo reveals LVH with preserved systolic function ejection fraction of the lower limits of normal of 50 to 55% Mildly enlarged right ventricle Mild aortic root enlargement Previewed by: Dr. Marck Walker MD (Electronically Signed) Final Date: 22 March 2024 17:43
[2024-03-23 05:20] LABS: ALT 50 U/L (4-49); AST 177 U/L (17-59); African American GFR (CKD) >90 (>60 ml/min/1.73 sqM); Albumin 3.6 g/dL (3.5-5.0); Alkaline Phosphatase 54 U/L (38-126); Anion Gap 3 mmol/L; Blood Urea Nitrogen 9 mg/dL (9-20); Carbon Dioxide 30 mmol/L (22-30); Chloride 106 mmol/L (98-107); Glucose 103 mg/dL (74-99); Non-African American GFR(CKD) 88 (>60 ml/min/1.73 sqM); Potassium 3.9 mmol/L (3.5-5.1); Sodium 139 mmol/L (137-145); Total Protein 5.7 g/dL (6.3-8.2)
[2024-03-23 05:31] LABS: Basophils % (A) 0 %; Eosinophils % (A) 0 %; HCT 37.5 % (39.0-53.0); HGB 12.7 gm/dL (13.0-17.5); Lymphocytes # (A) 1.6 k/uL (1.0-4.8); Lymphocytes % (A) 21 %; MCH 31.1 pg (25.0-35.0); MCHC 33.8 g/dL (31.0-37.0); Mean Platelet Volume 8.4; Monocytes # (A) 0.5 k/uL (0-1.0); Monocytes % (A) 7 %; Neutrophils # (A) 5.3 k/uL (1.3-7.7); Neutrophils % (A) 68 %; Platelet Count 128 k/uL (150-450); RBC 4.07 m/uL (4.30-5.90); RDW 13.9 % (11.5-15.5); WBC 7.8 k/uL (3.8-10.6)
[2024-03-23] MEDS: POTASSIUM CHLORIDE ER 20 MEQ TAB.ER PO SCH (06:27)
[2024-03-23 10:21] VITALS: RESP 16; TEMP 97.8
[2024-03-23] MEDS: METOPROLOL SUCCINATE (ER) 25 MG TAB.ER.24H PO SCH (12:13)
--- NOTE | 2024-03-23 12:14 | P.DS ---
Providers Date of admission: 03/21/24 14:28 Expected date of discharge: 03/23/24 Attending physician: Pilar Nash Consults: 03/21/24 16:08 Consult Physician Routine Consulting Provider: [facility] Consult Reason/Comments: Post Interventional patient Do you want consulting provider notified?: Already Contacted Primary care physician: Physician Nonstaff Hospital Course: Discharge diagnoses; ST elevation AR Hypotension Hyperlipidemia Hospital course; 63-year-old male patient, history of hypertension, hyperlipidemia, brought to ED by EMS with complaint of chest pain as a STEMI alert; patient reports chest pain started about an hour prior to arrival to the ER on the left side of the chest radiating to left upper extremity; pain started at rest and more like aching on the left side of the chest; patient received aspirin and nitroglycerin en route to ED EKG revealed marked ST elevation consistent with inferior injury; EKG was reviewed by cardiology and patient was taken to [facility] for further intervention Blood work on arrival reveals a WBC of 6.5, hemoglobin of 14.2 and platelet count 152, sodium 141, potassium 4.5, BUN/creatinine 14/1.10 and blood glucose of 101 Chest x-ray reveals interstitial density possibly bronchitis or asthma Patient underwent cardiac catheterization which revealed occluded mid RCA with large thrombus burden; patient underwent PCI of the RCA; mild to moderate nonobstructive disease involving an aneurysmal left coronary stent 03/22. Patient seen and examined. States he feels much better. Denies any chest pain. Denies any shortness of breath. 03/23. Patient seen and examined. 2D echo done showed LVH with preserved systolic function between 50 to 55%, mildly enlarged right ventricle, mild aortic root enlargement. Patient being discharged on aspirin, Brilinta, Lipitor, Toprol. 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 Well developed, well nourished. HEENT: Pupils are round and equally reacting to light. EOMI. No scleral icterus. No conjunctival pallor. Normocephalic, atraumatic. No pharyngeal erythema. No thyromegaly. CARDIOVASCULAR: S1 and S2 present. No murmurs, rubs, or gallops. PULMONARY: Chest is clear to auscultation, no wheezing or crackles. ABDOMEN: Soft, nontender, nondistended, normoactive bowel sounds. No palpable organomegaly. MUSCULOSKELETAL: No joint swelling or deformity. EXTREMITIES: No cyanosis, clubbing, or pedal edema. NEUROLOGICAL: Gross neurological examination did not reveal any focal deficits. SKIN: No rashes. Dictation was produced using [employer] dictation software. please excuse any grammatical, word or spelling errors. Patient Condition at Discharge: Good Plan - Discharge Summary New Discharge Prescriptions: New Aspirin 81 mg PO DAILY #30 tab Ticagrelor [Brilinta] 90 mg PO BID #60 tab Atorvastatin [Lipitor] 40 mg PO HS #30 tab Nitroglycerin Sl Tabs [Nitrostat] 0.4 mg SUBLINGUAL Q5M PRN #30 tab PRN Reason: Chest Pain Metoprolol Succinate (ER) [Toprol XL] 12.5 mg PO DAILY #30 tab Discontinued Aspirin EC [Ecotrin Low Dose] 162 mg PO DAILY Discharge Medication List Aspirin 81 mg PO DAILY #30 tab 03/23/24 [Rx] Atorvastatin [Lipitor] 40 mg PO HS #30 tab 03/23/24 [Rx] Metoprolol Succinate (ER) [Toprol XL] 12.5 mg PO DAILY #30 tab 03/23/24 [Rx] Nitroglycerin Sl Tabs [Nitrostat] 0.4 mg SUBLINGUAL Q5M PRN #30 tab 03/23/24 [Rx] Ticagrelor [Brilinta] 90 mg PO BID #60 tab 03/23/24 [Rx] Follow up Appointment(s)/Referral(s): Konstantin Metzger MD [STAFF PHYSICIAN] - 1 Week Nonstaff,Physician [Primary Care Provider] - 1-2 days
[2024-03-23 12:18] VITALS: BP 121/75; PULSE 75
[2024-03-23 15:44] LABS: Chol/HDL Ratio 2.72 Ratio; LDL Cholesterol,Calculated 69.9 mg/dL (0.0-131.0); VLDL Calculation 12.26 mg/dL (5.00-40.00)
[2024-03-23] MEDS ORDERED: ATORVASTATIN 40 MG TAB PO SCH (21:00)
== END 2024-03-23 14:44 | disposition home or self-care (01) | DRG 322 ==
LOC: EC 13:57 → 2SICU 14:28
PROVIDERS: ADMIT Hospitalist; ATTEND Hospitalist
PROC: B2111ZZ Fluoroscopy of Multiple Coronary Arteries using Low Osmolar Contrast (ICD-10-PCS; principal; 2024-03-21 14:15)
PROC: 027034Z Dilation of Coronary Artery, One Artery with Drug-eluting Intraluminal Device, Percutaneous Approach (ICD-10-PCS; principal; 2024-03-21 14:15)
PROC: B240ZZ3 Ultrasonography of Single Coronary Artery, Intravascular (ICD-10-PCS; principal; 2024-03-21 14:15)
PROC: 4A023N7 Measurement of Cardiac Sampling and Pressure, Left Heart, Percutaneous Approach (ICD-10-PCS; principal; 2024-03-21 14:15)
PROC: 02C03ZZ Extirpation of Matter from Coronary Artery, One Artery, Percutaneous Approach (ICD-10-PCS; 2024-03-21 14:15)
DX: I21.19 ST elevation (STEMI) myocardial infarction involving other coronary artery of inferior wall (principal); I25.10 Atherosclerotic heart disease of native coronary artery without angina pectoris; I10 Essential (primary) hypertension; I95.9 Hypotension, unspecified; E78.5 Hyperlipidemia, unspecified; Z79.02 Long term (current) use of antithrombotics/antiplatelets; Z79.82 Long term (current) use of aspirin; Z86.73 Personal history of transient ischemic attack (TIA), and cerebral infarction without residual deficits
CPT/HCPCS: 71045; 80048; 80053; 80061; 83735; 84484; 85025; 85610; 85730; 92973; 92978; 93005; 93306; 93454; 96374; 96375; 99291